=== PATIENT | female | born 1960 | race Caucasian/White ===

== ENCOUNTER 2017-04-08 06:19 | Inpatient (IN) | payer OTHER ==
[~2017-04-08] VITALS: Ht 157.5 cm; Wt 102.8 kg
--- NOTE | ~2017-04-08 | CATHLAB ---
[facility] [place] [address] INVASIVE PROCEDURE REPORT Name: JSAON MARTINEZ Room #: 211-P [place] [facility].#: [id number] Admission: 04/08/17 Attend Phys: Dirk Lugo, Discharge: Date of : 56 Date of Service: 04/11/17 0801 Report #: [id number] THIS REPORT FOR: //name// APPROVED REPORT Patient Details Patient Status: In-Patient Room #: The patient is a 57 year-old female Event Personnel Jerome Steen Mud Logger, Jackson Mcfarland RN, Hansel Kapoor RN RN, Linda Berkowitz Click, Shelly CVT Monitor, Viviane Augustin RTArley Monitor Procedures Performed Art Access - R femoral artery* 85429 Initial Mod Sed Same Phys/QHP Gr5y 617180 Left Heart Cath w/or w/o Coronaries [id number] [facility] Indication Non-STEMI , Dyspnea, Chest pain Risk Factors Hypercholesterolemia, Hypertension, Diabetes Procedure Narrative The Right Groin^ was infiltrated with 1% Lidocaine subcutaneous anesthesia. A PINNACLE 4FR Sheath #[id number] sheath was inserted into the RFA 4 fr^. Coronary angiography was performed using coronary diagnostic catheters. The right coronary system was accessed and visualized with a JR4 catheter. The left coronary system was accessed and visualized with a JL4 catheter. The left ventricle was accessed and visualized with a Pigtail catheter. Left ventricular/Aortic Valve gradient assessed via catheter pullback. Left ventriculogram was performed in 30 degree projection. The patient tolerated the procedure well and there were no complications associated with the procedure. Intraoperative Conscious Sedation Sedation start time: 16:13 Case end Time: 16:25 Fentanyl 25 mcg Versed 1.5 mg Fluoro Time: 1.44 minutes Dose: DAP 2987.62 cGycm2 375 mGy [facility] [place] [address] INVASIVE PROCEDURE REPORT Name: JASON MARTINEZ Room #: 211-P [place] ..#: [id number] Admission: 04/08/17 Attend Phys: Dirk Lugo, Discharge: Date of : 56 Date of Service: 04/11/17 0801 Report #: [id number] Contrast Type and Amount: Omnipaque 100 ml Coronary Angiography The patient's coronary anatomy is right dominant. Diagnostic Cath Left Main Large-caliber vessel, with no flow-limiting lesions. LAD Moderate to large size caliber vessel, traveling down the anterior wall. There are no flow-limiting lesions. The mid segment has mild disease, less than 20%. Diagonal 1 Patent vessel, with mild disease proximally. Circumflex Modest to large size caliber vessel, with mild disease in the mid segment, less than 20%. OM1 Patent vessel, with no flow-limiting lesions. Right Coronary Dominant vessel, with mild disease in mid segment, less than 20%. R PDA Patent vessel, with no flow-limiting lesions. Left Ventriculography The left ventricle is normal in size with normal contractility. The left ventricular ejection fraction is estimated to be 65-70%. Hemodynamics The aortic pressure is 138/115 mmHg with a mean of 127 mmHg. The left ventricular pressure is 206/19 mmHg with a mean of mmHg. The left ventricular end diastolic pressure is 43 mmHg. Conclusion 1. Mild, nonobstructive disease. 2. Hyperdynamic LV systolic function. 3. Recommend medical therapy. <ELECTRONICALLY SIGNED> By: Jerome Steen MD 04/11/17800 0 0 Jerome Steen MD /INF
--- NOTE | ~2017-04-08 | HC ---
[facility] [place] [address] CONSULTATION Name: JASON MARTINEZ Room #: 211-P [place] M.R.#: [id number] Admission: 04/08/17 Attend Phys: Dirk Lugo DO Discharge: Date of : 56 Report #: [id number] THIS REPORT FOR: //name// CC: Dirk Hernandez DATE OF SERVICE: 04/09/2017 INDICATION: Chest pain. HISTORY OF PRESENT ILLNESS: This is a 57-year-old female presenting with an episode of chest pain. She works as a nurse's aide, developed sudden onset of substernal chest pressure, radiating to the back area. It was associated with lightheadedness, shortness of breath and chills. The whole episode lasted approximately hour to hour and a half in duration. She was evaluated in the ER at [facility], found to have an abnormal troponin level. She was subsequently transferred up to [facility] for further evaluation. The peak troponin level is 0.39. She denies any episodes of fever, nausea, diarrhea or orthopnea. PAST MEDICAL HISTORY: Previously on medications for hypertension, diabetes mellitus and hypercholesterolemia. She did undergo a gastric sleeve procedure last year, losing over 100 pounds. Since then, she has been off all medications. ALLERGIES: None. MEDICATIONS: None. SOCIAL HISTORY: Denies any tobacco use. FAMILY HISTORY: Negative for premature CAD. REVIEW OF SYSTEMS: A full 10-point review of systems performed. Only the pertinent positives and negatives are described in the HPI. PHYSICAL EXAMINATION: VITAL SIGNS: Blood pressure is 159/60, heart rate is 50 beats per minute. GENERAL APPEARANCE: An mildly overweight female in no acute respiratory distress. HEAD AND EYES: Normocephalic. Sclerae anicteric. ENT: Oral mucosa moist. NECK: Supple. LUNGS: Clear to auscultation. CARDIAC: Regular rate and rhythm, S1, S2 positive. ABDOMEN: Soft. [facility] [address] [place] [address] CONSULTATION Name: JASON MARTINEZ Room #: 211-[facility] [place] ..#: [id number] Admission: 04/08/17 Attend Phys: Dirk Lugo DO Discharge: Date of : 56 Report #: [id number] EXTREMITIES: No major joint deformities, no cyanosis, no edema. NEUROLOGIC: Alert and oriented x 3 ECG reveals sinus bradycardia, LVH. LABORATORY VALUES: Sodium is 143, creatinine is 0.7. Peak troponin is 0.39. IMPRESSION AND PLAN: 1. Non-ST elevation myocardial infraction. Given her presentation and CAD risk factors, I discussed with the patient the pros and cons of a cardiac catheterization. The patient understands and wishes to proceed. 2. Hypertension, stable with beta anil, may need additional medications. 3. Hypercholesterolemia, start statin therapy. 4. Diabetes mellitus. Check fingersticks. <ELECTRONICALLY SIGNED> By: Jerome Steen MD 04/10/17 0831 1745 2200 Jerome Steen MD /adam
--- NOTE | ~2017-04-08 | EKG ---
[place] [address] [facility] [place] [address] ELECTROCARDIOGRAM REPORT Name: JASON MARTINEZ Room #: 211-P ADM IN M.R.#: [id number] Admission: 04/08/17 Attend Phys: Dirk Lugo DO Discharge: Date of : 56 Report #: [id number] THIS REPORT FOR: //name// [facility] Test Date: 2017-04-08 Test Time: 11:25:18 Pat Name: JASON MARTINEZ Department: Room: 211 P Gender: F Deck Specialist: van : [id number] Requested By: Maureen Lozano Order Number: [id number] MD: Jerome Steen Measurements Intervals [place] Rate: 50 P: 30 [place]: 165 QRS: -11 QRSD: 102 T: 60 QT: 483 QTc: 441 Interpretive Statements Sinus rhythm Left ventricular hypertrophy ST elevation, consider anterior injury No previous ECG available for comparison Electronically Signed On 04-08-2017 11:27:04 EM PHYSICIAN by Jerome Steen [email or web address] <ELECTRONICALLY SIGNED> By: Jerome Steen MD 04/08/17 1127 1125 1125 MD MARIO Shipman
[2017-04-08 09:30] VITALS: BP 172/85
[2017-04-08 11:30] VITALS: BP 158/75
[2017-04-08 15:40] VITALS: BP 117/68
[2017-04-08 19:47] VITALS: BP 143/72
[2017-04-09 04:11] LABS: ALBUMIN 2.7 g/dL (3.4-5.0); CALCIUM 8.1 mg/dL (8.5-10.1); CREATININE 0.7 mg/dL (0.6-1.0); PHOSPHORUS 4.1 mg/dL (2.5-4.9); POTASSIUM 3.9 mmol/L (3.5-5.1); TROPONIN-I 0.22 ng/mL (<0.06)
[2017-04-09 05:14] VITALS: BP 180/81
[2017-04-09 07:05] VITALS: BP 158/75
[2017-04-09 09:11] LABS: CHOLESTEROL 157 mg/dL (<200); HDL CHOLESTEROL 63 mg/dL (>40); LDL CHOLESTEROL 80 mg/dL (<100); SERUM ASSESSMENT Clear; TC:HDL 2.5 Ratio (Not establshd); TRIGLYCERIDE 71 mg/dL (<150); VLDL 14 mg/dL (<40)
[2017-04-09 11:40] VITALS: BP 162/64
[2017-04-09 15:03] VITALS: BP 99/50
[2017-04-09 16:25] VITALS: BP 149/67
[2017-04-09 20:00] VITALS: BP 138/74
[2017-04-10 02:54] LABS: HEMATOCRIT 37.7 % (37.0-47.0); HEMOGLOBIN 12.3 gm/dL (12.0-15.0); MCHC 32.8 g/dL (28.0-37.0); MCV 88.6 fL (80.0-100.0); RBC 4.25 mil/uL (4.20-5.00); RDW 14.5 % (10.5-14.5); WBC 4.4 thou/uL (4.0-11.0)
[2017-04-10 03:10] LABS: CALCIUM 8.7 mg/dL (8.5-10.1); CREATININE 0.8 mg/dL (0.6-1.0)
[2017-04-10 04:30] VITALS: BP 157/72
[2017-04-10 07:20] VITALS: BP 170/87
[2017-04-10 11:50] VITALS: BP 158/79
[2017-04-10 18:00] VITALS: BP 143/64
[2017-04-10 18:30] VITALS: BP 123/65
[2017-04-10 19:58] VITALS: BP 137/61
[2017-04-11 00:03] VITALS: BP 122/61
[2017-04-11 03:15] LABS: HEMATOCRIT 38.1 % (37.0-47.0); HEMOGLOBIN 12.5 gm/dL (12.0-15.0); MCHC 32.9 g/dL (28.0-37.0); MCV 88.2 fL (80.0-100.0); RBC 4.32 mil/uL (4.20-5.00); RDW 14.7 % (10.5-14.5); WBC 4.7 thou/uL (4.0-11.0)
[2017-04-11 03:29] LABS: CALCIUM 8.4 mg/dL (8.5-10.1); CREATININE 0.7 mg/dL (0.6-1.0); POTASSIUM 4.1 mmol/L (3.5-5.1)
[2017-04-11 03:35] VITALS: BP 152/76
[2017-04-11 07:30] VITALS: BP 153/72
[2017-04-11] MEDS ORDERED: CARVEDILOL12.5 MG PO (09:15)
[2017-04-11] MEDS ORDERED: COZAAR 50 MG TA50 M1 PO (09:15)
[2017-04-11] MEDS ORDERED: ATORVASTATIN CA40 MG PO (09:15)
[2017-04-11] MEDS ORDERED: ASPIR 8181 MG PO (09:16)
[2017-04-11 09:21] VITALS: BP 153/72
== END 2017-04-11 10:25 | disposition home or self-care (01) | DRG 281 ==
LOC: 2N 06:19 → ENTRNSPT 04-11 10:18 → EDTRNSPTSTS 04-11 10:21 → 2N 04-11 10:25
PROVIDERS: Hospitalist; Internal Medicine Cardiovascular Disease
DX: I21.4 Non-ST elevation (NSTEMI) myocardial infarction (principal); Z68.41 Body mass index [BMI] 40.0-44.9, adult; I10 Essential (primary) hypertension; E11.9 Type 2 diabetes mellitus without complications; E78.00 Pure hypercholesterolemia, unspecified; E66.9 Obesity, unspecified; E78.5 Hyperlipidemia, unspecified; I25.10 Atherosclerotic heart disease of native coronary artery without angina pectoris; Z82.49 Family history of ischemic heart disease and other diseases of the circulatory system; Z83.3 Family history of diabetes mellitus; Z82.5 Family history of asthma and other chronic lower respiratory diseases; Z87.891 Personal history of nicotine dependence
CPT/HCPCS: 10081